=== PATIENT | male | born 1995 | race African-American/Black ===

== ENCOUNTER 2024-03-16 20:47 | Emergency (ER) | payer OTHER, SELFPAY ==
[2024-03-16 20:49] VITALS: BP 171/104
--- NOTE | 2024-03-16 21:17 | ED.GENMED ---
History of Present Illness
General
Chief Complaint: Skin Problem
Source: patient
Exam Limitations: none
Time Seen by Provider: 03/16/24 21:12
History of Present Illness
History of Present Illness:
Patient has had about 10 days of left facial swelling. Known caries and known fractured teeth upper and lower. Has not seen a dentist or tried to see a dentist. No fever. No trouble swallowing or breathing. No neck swelling or neck pain. Had
some foul-smelling drainage from his nose. This was the final straw
Past History
Past History
ED Past Medical History: Asthma and Other (Opioid use disorder)
ED Past Surgical History: Tonsilectomy
Social History
Tobacco: Vaping ( Tobacco)
Alcohol: None
Drug: Narcotics
Personal: Single
Living: homeless (Had been residing with the mother of his children, prior to that sober living house.)
Employment: Employed
Family History
Family History: Other (Noncontributory)
Review of Systems
Review of Systems
All Other Systems: Not applicable
Constitutional: Denies fever or chills
Respiratory: Reports no symptoms
Cardiac: Reports no symptoms
Phy Exam
Physical Exam
Physical Exam:
GENERAL: Alert and oriented in no apparent distress
EYE: Orbits normal.
NECK: Supple, no swelling.
ENT: Pharynx without erythema. Multiple fractured teeth and remaining teeth at the gumline. No obvious large intraoral abscess. No drooling or stridor. Speech normal. Nothing obvious intranasally.
CARDIAC: Regular rate and rhythm
LUNGS: No respiratory distress
NEUROLOGICAL: Alert and oriented , grossly non-focal
SKIN: Warm and dry
PSYCH: Normal and appropriate interaction.
Course
Orders/Labs/Results
Orders:
Orders
03/16/24 21:16
CT Facial Bones W/ Iv Contrast Urgent
Comment:
Reason For Exam: Left facial swelling.
IV Insert/Care/Rem.- Treatment PRN
03/16/24 21:25
Basic Metabolic Panel Urgent
Complete Blood Count/With Diff Urgent
03/16/24 22:58
CefTRIAXone [Rocephin] 1,000 mg IV NOW STA
Abnormal Lab Results
03/16/24
21:25
WBC 12.7 H 10^3/uL
(4.8-10.8)
RBC 4.31 L 10^6/uL
(4.70-6.10)
Hgb 12.0 L g/dL
(13.0-18.0)
Hct 35.3 L %
(39.0-52.0)
MPV 10.6 H fL
(7.4-10.4)
Abs Immat Gran (auto) 0.1 H 10^3/uL
(0-0.05)
Absolute Neuts (auto) 8.1 H 10^3/uL
(1.4-6.5)
Absolute Lymphs (auto) 3.9 H 10^3/uL
(1.2-3.4)
Chloride 108 H mmol/L
(98-107)
Glucose 132 H mg/dl
(70-99)
03/16/24 21:25
03/16/24 21:25
Vital Signs
Initial and Last Documented VS:
Initial Vital Signs
Temp Pulse Resp BP Pulse Ox
98.6 F 104 20 171/104 99
03/16/24 20:49 03/16/24 20:49 03/16/24 20:49 03/16/24 20:49 03/16/24 20:49
Last Documented Vital Signs
Temp Pulse Resp BP Pulse Ox
98.6 F 87 18 154/88 97
03/16/24 20:49 03/16/24 23:28 03/16/24 23:28 03/16/24 23:28 03/16/24 23:28
MDM/Problems Addressed
Differential Diagnosis Includes:
Patient with a likely periodontal abscess. No airway issues. No trismus no drooling no stridor. However with foul-smelling drainage intranasally we will get a CAT scan to evaluate for any further extension
*Radiology
Radiology exam reviewed: radiology read reviewed (CAT scan shows severe dental disease. Expansile left maxillary cyst and not sinusitis.)
*Pulse Oximetry
Patient hypoxic: no
*Critical Care Note
Total Time (30-74mins, 75-104mins- exclusive of procedures): Not Applicable
Data Reviewed
Review of Other/Old Records Reveals: Records
Update Note
Update Note:
Patient is remained stable and nontoxic. No airway issues. No severe swelling. I am comfortable with outpatient management with antibiotics but clearly needs follow-up with ENT, oral surgery and dental. This was all discussed with the patient.
Copy of CT report given to the patient
ED Attending Note
-
Portions of this chart may have been created with voice recognition software.� Occasional wrong word or��sound alike� substitutions may have occurred due to the inherent limitations of voice recognition software.
Discharge Plan
Departure
Patient Disposition: Home (Routine Discharge)
Date of Disposition: 03/16/24
Time of Disposition: 22:59
Patient with high blood pressure during this ER visit?: Yes
Discharge Problem:
Periodontal abscess, Severe dental caries, Maxillary cyst/sinusitis
Instructions: Sinusitis, Adult ED, Tooth Abscess ED, Tooth Decay ED, BLOOD PRESSURE
Prescriptions:
New
amoxicillin-pot clavulanate 875-125 mg tablet
1 tab PO BID Qty: 20 0RF
Referrals:
NONE,* [Family Provider] -
Davida Maria DMD [Active] - Next open appointment
Ray Fernandez MD [Active] - Next open appointment
Activity Restrictions/Additional Instructions:
You need follow-up with ENT, oral surgery and dental as we discussed. I would recommend trying the dental clinic at [place].
If symptoms are progressing before you get into any of the specialists, return immediately to the ER for reevaluation. This would include increased swelling increased pain fever any shortness of breath trouble breathing or swallowing. Any neck
swelling.
Interventions
Interventions:
*Risk Screen - Suicide Last Done: 03/16/24 20:49
*General Assessment Last Done: 03/16/24 20:49
*Neglect/Abuse Screening Last Done: 03/16/24 20:49
ED- Fall Risk Assessment Last Done: 03/16/24 23:30
*ED COVID-19 Vaccine History Last Done: 03/16/24 23:30
*Nursing Disposition Last Done: 03/16/24 23:30
ED-Skin Assessment Last Done: 03/16/24 21:53
Discharge Date and Time
Discharge Date/Time: 03/16/24 23:31
Print Language: DIVEHI
[2024-03-16 21:43] LABS: % Basophils 0.5 % (0-2); % Eosinophils 0.2 % (0-6); % Immature Granulocytes 0.4 % (0-0.5); % Lymphocytes 30.4 % (20.5-51.1); % Monocytes 4.3 % (1.7-9.3); % Neutrophils 64.2 % (42.2-75.2); Absolute Basophils 0.1 10^3/uL (0-0.2); Absolute Immature Granulocytes 0.1 10^3/uL (0-0.05); Absolute Lymphocytes 3.9 10^3/uL (1.2-3.4); Absolute Monocytes 0.5 10^3/uL (0.1-0.6); Absolute Neutrophils 8.1 10^3/uL (1.4-6.5); Hematocrit 35.3 % (39.0-52.0); Mean Corpuscular Hgb 27.8 pg (27.0-31.0); Mean Corpuscular Volume 81.9 fL (80.0-94.0); Mean Platelet Volume 10.6 fL (7.4-10.4); Nucleated Red Blood Cells % 0 % (-); Platelet Count 301 10^3/uL (130-400); Red Blood Cell Count 4.31 10^6/uL (4.70-6.10); Red Cell Dist. Width 13.2 % (11.5-14.5); White Blood Cell Count 12.7 10^3/uL (4.8-10.8)
[2024-03-16 22:00] LABS: Blood Urea Nitrogen 20 mg/dl (9-20); Calcium 9.6 mg/dl (8.4-10.2); Carbon Dioxide 27 mmol/L (22-30); Chloride 108 mmol/L (98-107); Glucose 132 mg/dl (70-99); Potassium 3.5 mmol/L (3.5-5.1); Sodium 142 mmol/L (135-145); eGFR > 60.00
[2024-03-16] MEDS: ROCEPHIN 1000 MG IV (23:04)
[2024-03-16 23:28] VITALS: BP 154/88
== END 2024-03-16 23:31 | disposition home or self-care (01) ==
LOC: EMR 20:47
PROVIDERS: EMERGENCY PHYSICIAN Emergency Medicine
DX: K05.219 Aggressive periodontitis, localized, unspecified severity (principal); K02.9 Dental caries, unspecified; J32.9 Chronic sinusitis, unspecified; J45.909 Unspecified asthma, uncomplicated; F17.290 Nicotine dependence, other tobacco product, uncomplicated
CPT/HCPCS: 99284; 70487; 80048; 85025; Q9967

== ENCOUNTER 2024-03-29 18:57 | Emergency (ER) | payer OTHER, SELFPAY ==
[2024-03-29 19:02] VITALS: BP 137/85
[2024-03-29 19:07] VITALS: BMI 30.1
--- NOTE | 2024-03-29 19:32 | ED.GENMED ---
History of Present Illness
General
Chief Complaint: Facial Problem
Time Seen by Provider: 03/29/24 19:32
History of Present Illness
History of Present Illness:
HPI: The patient presents with worsening left-sided facial swelling. He states he was here approximately 2 weeks ago and placed on Augmentin. He did not follow-up with a dentist as he was told to see someone after the completion of his course of
antibiotics. He was also told to return here if worse. He feels the symptoms are worsening. He describes them as 'way worse'.
EXAM:
GENERAL: Well appearing in no distress
HEENT: There is left-sided periorbital edema, there is sided facial edema over the zygomatic arch with some faint erythema
CARDIOVASCULAR: No murmurs, normal heart rate, regular rhythm, No chest wall tenderness
PULMONARY: No respiratory distress, breath sounds are clear and equal
ABDOMEN: Soft with no peritoneal signs, no tenderness
NEUROLOGIC: Excellent strength all extremities, no coordination deficits
PSYCHIATRIC: Appropriate mental status, normal insight and judgement
EXTREMITIES: Nontender, no edema, moves all extremities equally
SKIN: As above
TIME OF INITIAL ENCOUNTER: 8 PM
NUMBER AND COMPLEXITY OF PROBLEMS ADDRESSED AT THE ENCOUNTER
� Chronic conditions affecting care: Smoker, asthma, history of substance abuse
� Acute Exacerbation and/or Progression of Chronic Illness: This is a subacute problem
� Differential Diagnosis includes: Facial abscess, dental abscess, cellulitis
AMOUNT AND/OR COMPLEXITY OF DATA TO BE REVIEWED AND ANALYZED
� I performed an independent evaluation of and my interpretation is:
EKG:
CT: I personally viewed CT imaging and agree with radiologist interpretation including the opacification of the left maxilla along with significant dental disease
X-rays:
Laboratory Studies: White count is Normal at 10.5, chemistries are normal
Other:
� Review of other/old records: I reviewed records. The patient had a CT of the face 2 weeks ago that showed multiple caries and severe dental disease. At that time his white count was 12.7
� Clinical information was obtained by an independent historian: I spoke to his partner at bedside
� Prescriptions/Medications Considered but not given:
� Further testing considered but not performed:
RISK OF COMPLICATIONS AND/OR MORBIDITY OR MORTALITY OF PATIENT MANAGEMENT
� Social determinants of health affecting care: Lives at home
� Discussion with other providers:
� Escalation of care including admission/observation vs risk of discharge considered: The patient is not improving/worsening despite oral antibiotics. Will repeat imaging and give IV antibiotics. On reassessment at 10:50 PM, I
offered and amended keeping the patient to the hospital for further management including IV antibiotics. The patient states he has other obligations and cannot stay in the hospital. I emphasized the absolute need to follow-up with a dentist as I
suspect the etiology of his infection is dental in nature. Will switch to clindamycin.
Past History
Past History
ED Past Medical History: Asthma and Other (Opioid use disorder)
ED Past Surgical History: Tonsilectomy
Social History
Tobacco: Vaping ( Tobacco)
Alcohol: None
Drug: Narcotics
Personal: Single
Living: homeless (Had been residing with the mother of his children, prior to that sober living house.)
Employment: Employed
Family History
Family History: Other (Noncontributory)
Phy Exam
Physical Exam
Physical Exam:
See HPI
Course
Orders/Labs/Results
Orders:
Orders
03/29/24 20:13
CT Facial Bones W/ Iv Contrast Urgent
Comment:
Reason For Exam: worsening L facial infx despite abx
Dexamethasone Sod Phosphate [Decadron] 10 mg IV NOW STA
03/29/24 20:36
Basic Metabolic Panel Urgent
Complete Blood Count/With Diff Urgent
03/29/24 20:46
Clindamycin 600 mg/50 ml [Cleocin] 600 mg in 50 ml IV NOW
03/29/24 22:50
Ketorolac [Toradol] 15 mg IV NOW STA
Abnormal Lab Results
03/29/24
20:36
RBC 3.91 L 10^6/uL
(4.70-6.10)
Hgb 11.1 L g/dL
(13.0-18.0)
Hct 32.9 L %
(39.0-52.0)
MPV 11.8 H fL
(7.4-10.4)
Absolute Neuts (auto) 8.1 H 10^3/uL
(1.4-6.5)
Neutrophils % 77.7 H %
(42.2-75.2)
Lymphocytes % 17.1 L %
(20.5-51.1)
Glucose 105 H mg/dl
(70-99)
03/29/24 20:36
03/29/24 20:36
Vital Signs
Initial and Last Documented VS:
Initial Vital Signs
Temp Pulse Resp BP Pulse Ox
97.3 F 96 18 137/85 96
03/29/24 19:02 03/29/24 19:02 03/29/24 19:02 03/29/24 19:02 03/29/24 19:02
Last Documented Vital Signs
Temp Pulse Resp BP Pulse Ox
97.3 F 63 19 137/90 100
03/29/24 19:02 03/29/24 22:49 03/29/24 22:49 03/29/24 22:49 03/29/24 22:49
*Critical Care Note
Total Time (30-74mins, 75-104mins- exclusive of procedures): Not Applicable
ED Attending Note
-
Portions of this chart may have been created with voice recognition software.� Occasional wrong word or��sound alike� substitutions may have occurred due to the inherent limitations of voice recognition software.
Discharge Plan
Departure
Patient Disposition: Home (Routine Discharge)
Date of Disposition: 03/29/24
Time of Disposition: 22:48
Patient with high blood pressure during this ER visit?: Yes
Discharge Problem:
Dental infection
Instructions: Tooth Abscess (DC), Cellulitis (Skin Infection), Adult (DC)
Prescriptions:
New
clindamycin HCl 300 mg capsule
300 mg PO TID Qty: 21 0RF
No Action
tetrahydrozoline [Visine] 0.05 % Drops
1 drp BOTH EYES QIDPRN PRN (Reason: dry eye)
acetaminophen [Tylenol Extra Strength] 500 mg Tablet
1,000 mg PO Q6HPRN PRN (Reason: mild pain)
ibuprofen 200 mg Tablet
800 mg PO [id number] PRN (Reason: mild pain)
buprenorphine-naloxone 8-2 mg Tablet, Sublingual
1 tab SUBLINGUAL BID
Referrals:
UNKNOWN - PT DOES,NOT KNOW [Family Provider] -
Stand Alone Forms: Return to Work
Activity Restrictions/Additional Instructions:
You absolutely must make an appointment to see a dentist. CAT scan shows:
There is prominent beam hardening artifact from dental metal hardware/amalgam and multiple dental caries. Large periapical lucency in the left mandible is again seen measuring approximately 2.2 x 1.9 cm without significant change in comparison to
prior study. Periapical lucency in the right maxilla again measures approximately 1.2 x 1.2 cm disrupting the buccal cortex of the left maxilla. Large periapical lucency in the left maxilla with expansile cyst that protrudes into the adjacent
premaxillary soft tissues and left maxillary sinus antrum is again seen measuring approximately 3 cm in greatest dimension. Total opacification, heterogeneous of the left maxillary sinus is again seen. Minor right maxillary sinus mucosal thickening
is again seen. Left ethmoid sinus and left frontal sinus mucosal thickening has minimally improved.
I am sending a prescription for clindamycin to your pharmacy. Please follow-up with a dentist. I recommend 3-4 [id number] ibuprofen (Motrin) every 8 hours with food for a few days. Return here if worse.
Interventions
Interventions:
*Risk Screen - Suicide Last Done: 03/29/24 19:02
*General Assessment Last Done: 03/29/24 19:02
*Neglect/Abuse Screening Last Done: 03/29/24 19:02
ED- Fall Risk Assessment Last Done: 03/29/24 21:13
ED- Neurological Assessment Last Done: 03/29/24 21:13
ED-Skin Assessment Last Done: 03/29/24 20:46
Discharge Date and Time
Print Language: ITALIAN
[2024-03-29] MEDS: DECADRON 10 MG IV (20:42)
[2024-03-29] MEDS: CLEOCIN 50 IV (21:00)
[2024-03-29 21:05] LABS: % Basophils 0.1 % (0-2); % Immature Granulocytes 0.2 % (0-0.5); % Lymphocytes 17.1 % (20.5-51.1); % Monocytes 4.9 % (1.7-9.3); % Neutrophils 77.7 % (42.2-75.2); Absolute Lymphocytes 1.8 10^3/uL (1.2-3.4); Absolute Monocytes 0.5 10^3/uL (0.1-0.6); Absolute Neutrophils 8.1 10^3/uL (1.4-6.5); Hematocrit 32.9 % (39.0-52.0); Hemoglobin 11.1 g/dL (13.0-18.0); Mean Corp Hgb Conc. 33.7 g/dL (33.0-37.0); Mean Corpuscular Hgb 28.4 pg (27.0-31.0); Mean Corpuscular Volume 84.1 fL (80.0-94.0); Mean Platelet Volume 11.8 fL (7.4-10.4); Nucleated Red Blood Cells % 0 % (-); Platelet Count 286 10^3/uL (130-400); Red Blood Cell Count 3.91 10^6/uL (4.70-6.10); Red Cell Dist. Width 13.2 % (11.5-14.5); White Blood Cell Count 10.5 10^3/uL (4.8-10.8)
[2024-03-29 21:42] LABS: Blood Urea Nitrogen 16 mg/dl (9-20); Calcium 9.2 mg/dl (8.4-10.2); Carbon Dioxide 26 mmol/L (22-30); Chloride 105 mmol/L (98-107); Estimated Creatinine Clearance > 125 ml/min; Glucose 105 mg/dl (70-99); Potassium 4.4 mmol/L (3.5-5.1); Sodium 137 mmol/L (135-145); eGFR > 60.00
[2024-03-29 22:49] VITALS: BP 137/90
[2024-03-29] MEDS: TORADOL 15 MG IV (23:02)
== END 2024-03-29 23:07 | disposition home or self-care (01) ==
LOC: EMR 18:57
PROVIDERS: EMERGENCY PHYSICIAN Emergency Medicine
DX: K04.7 Periapical abscess without sinus (principal); J45.909 Unspecified asthma, uncomplicated; F17.290 Nicotine dependence, other tobacco product, uncomplicated
CPT/HCPCS: 99284; 96365; 96375; 70487; 80048; 85025; Q9967

== ENCOUNTER 2024-04-06 21:21 | Emergency (ER) | payer OTHER, SELFPAY ==
[2024-04-06 21:24] VITALS: BP 143/100
[2024-04-06 21:44] VITALS: BMI 29.9
[2024-04-06] MEDS: TYLENOL 1000 MG PO (22:49)
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
[2024-04-07 00:41] VITALS: BP 140/101
== END 2024-04-07 00:43 | disposition home or self-care (01) ==
LOC: EMR 21:21
PROVIDERS: EMERGENCY PHYSICIAN Student in an Organized Health Care Education/Training Program
DX: R68.84 Jaw pain (principal); S01.511A Laceration without foreign body of lip, initial encounter; Y04.2XXA Assault by strike against or bumped into by another person, initial encounter; Y93.89 Activity, other specified; Y92.89 Other specified places as the place of occurrence of the external cause; Y99.0 Civilian activity done for income or pay; K04.8 Radicular cyst; J45.909 Unspecified asthma, uncomplicated; F17.290 Nicotine dependence, other tobacco product, uncomplicated; Z91.048 Other nonmedicinal substance allergy status
CPT/HCPCS: 99284; 70450; 70486

== ENCOUNTER 2024-04-19 23:22 | Emergency (ER) | payer OTHER, SELFPAY ==
[2024-04-19 23:28] VITALS: BP 130/84
[2024-04-20 01:29] VITALS: BMI 31.8
[2024-04-20 01:30] VITALS: BP 117/80
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
[2024-04-20] MEDS: AUGMENTIN 875 MG/125 MG 1 TABLET PO (02:45)
[2024-04-20] MEDS: MOTRIN 600 MG PO (02:54)
[2024-04-20 03:00] VITALS: BP 129/79
== END 2024-04-20 03:00 | disposition home or self-care (01) ==
LOC: EMR 23:22
PROVIDERS: EMERGENCY PHYSICIAN Emergency Medicine
DX: L02.01 Cutaneous abscess of face (principal); K04.7 Periapical abscess without sinus; K04.8 Radicular cyst; R51.9 Headache, unspecified; Y04.0XXA Assault by unarmed brawl or fight, initial encounter; J45.909 Unspecified asthma, uncomplicated; F17.290 Nicotine dependence, other tobacco product, uncomplicated; Z91.048 Other nonmedicinal substance allergy status
CPT/HCPCS: 99284; 64400

== ENCOUNTER 2024-06-17 19:40 | Emergency (ER) | payer OTHER, SELFPAY ==
[2024-06-17 19:52] VITALS: BP 133/80
--- NOTE | 2024-06-17 21:39 | ED.GENMED ---
History of Present Illness
General
Chief Complaint: Dental Problem
Time Seen by Provider: 06/17/24 20:43
History of Present Illness
History of Present Illness:
28-year-old male presenting for concern of left facial dental abscess. Patient reports in the past 4 days has had some left-sided facial swelling and pain. Notes that he has had this before, requiring drainage, most recently in April. Denies
fever. He has not seen a dentist in over a year. He reports that the area of issue is left upper. Denies additional acute medical complaints or issues.
Past History
Past History
ED Past Medical History: Asthma and Other (Opioid use disorder)
ED Past Surgical History: Tonsilectomy
Social History
Tobacco: Vaping ( Tobacco)
Alcohol: None
Drug: Narcotics
Personal: Single
Living: homeless (Had been residing with the mother of his children, prior to that sober living house.)
Employment: Employed
Family History
Family History: Other (Noncontributory)
Phy Exam
Physical Exam
Physical Exam:
General: Well-appearing, no clinical signs of dehydration, nontoxic and in no acute distress
HEENT: protecting airway, mild left facial swelling. No oropharyngeal swelling. No trismus. On palpation of the gumline, no palpable fluctuance. Absent tooth at molar, #15 with some residual necrosis.
Neck: appears supple
CV: Normal heart rate
Resp: No accessory muscle use, no increased work of breathing
Abd: No distention
Extremities: No deformities, no swelling
Neuro: alert, no focal neurologic deficit
: deferred
Rectal: deferred
Psych: Normal affect
Skin: Intact
Course
Orders/Labs/Results
Orders:
Orders
06/17/24 21:35
Clindamycin HCl [Cleocin] 600 mg PO NOW STA
Ketorolac [Toradol] 30 mg IM NOW STA
Vital Signs
Initial and Last Documented VS:
Initial Vital Signs
Temp Pulse BP Pulse Ox
99.6 F 79 133/80 100
06/17/24 19:52 06/17/24 19:52 06/17/24 19:52 06/17/24 19:52
Last Documented Vital Signs
Temp Pulse BP Pulse Ox
99.6 F 79 133/80 100
06/17/24 19:52 06/17/24 19:52 06/17/24 19:52 06/17/24 19:52
MDM/Problems Addressed
MDM/Problems Addressed:
28-year-old male presenting for concern of recurrent dental abscess. Vital signs and arrival are normal.
On exam patient is well-appearing, no acute distress or discomfort, nontoxic. No oropharyngeal edema or erythema. No airway compromise. No trismus. Patient does have some mild left-sided facial swelling. No palpable fluctuance on exam. Suspect
apical abscess, however does not appear to be drainable at this time. Will start patient on antibiotics. He is otherwise nontoxic, feel stable for outpatient dental follow-up. Advised seeing a dentist for [facility] imaging. Return precautions
discussed patient verbalized understanding
*Critical Care Note
Total Time (30-74mins, 75-104mins- exclusive of procedures): Not Applicable
ED Attending Note
-
Portions of this chart may have been created with voice recognition software.� Occasional wrong word or��sound alike� substitutions may have occurred due to the inherent limitations of voice recognition software.
Discharge Plan
Departure
Prescriptions:
No Action
tetrahydrozoline [Visine] 0.05 % Drops
1 drp BOTH EYES QIDPRN PRN (Reason: dry eye)
acetaminophen [Tylenol Extra Strength] 500 mg Tablet
1,000 mg PO Q6HPRN PRN (Reason: mild pain)
ibuprofen 200 mg Tablet
800 mg PO [id number] PRN (Reason: mild pain)
buprenorphine-naloxone 8-2 mg Tablet, Sublingual
1 tab SUBLINGUAL BID
clindamycin HCl 300 mg capsule
300 mg PO TID Qty: 21 0RF
amoxicillin-pot clavulanate 875-125 mg tablet
1 tab PO BID Qty: 14 0RF
prednisone 10 mg Tablet
See Rx Instructions .ROUTE .COMPLEX Qty: 30 0RF
Rx Instructions:
Take By Mouth:
40 mg daily x3 days, 30 mg daily x3 days,
20 mg daily x3 days, 10 mg daily x3 days.
Referrals:
NONE,* [Family Provider] -
Interventions
Interventions:
*Risk Screen - Suicide Last Done: 06/17/24 21:23
*General Assessment Last Done: 06/17/24 21:23
*Neglect/Abuse Screening Last Done: 06/17/24 21:23
*ED COVID-19 Vaccine History Last Done: 06/17/24 21:23
Discharge Date and Time
Print Language: CZECH
[2024-06-17] MEDS: CLEOCIN 600 MG PO (21:52)
[2024-06-17] MEDS: TORADOL 30 MG IM (21:54)
== END 2024-06-17 21:59 | disposition home or self-care (01) ==
LOC: EMR 19:40
PROVIDERS: EMERGENCY PHYSICIAN Student in an Organized Health Care Education/Training Program
DX: K08.89 Other specified disorders of teeth and supporting structures (principal); J45.909 Unspecified asthma, uncomplicated; F17.290 Nicotine dependence, other tobacco product, uncomplicated
CPT/HCPCS: 96372; 99284

== ENCOUNTER 2024-06-20 19:04 | Emergency (ER) | payer OTHER, SELFPAY ==
--- NOTE | 2024-06-20 19:21 | ED.GENMED ---
ED Provider Triage
<Marysol Jaramillo PHYSIOLOGIST - Last Filed: 06/20/24 19:23>
-
Patient seen by provider in Triage?: Seen in Triage
Attestation: A medical screening examination has been initiated by a qualified medical provider. Based on the assessment performed at this time, it has been determined that an emergent medical condition may exist and the patient has been informed
that further medical evaluation and possible additional diagnostic testing may be needed.
HPI: 28 yo male here for 'dental abscess left upper tooth' started 2 weeks ago, gradually worsening. Was here Sunday 06/17 and put on Clindamycin, has had 7 doses and area getting worse. Feels feverish did not take temp.
Denies n/v.
GENERAL: Alert , in no apparent distress
EYE: No visual abnormalities.
ENT: Notable moderate swelling left upper cheek.
LUNGS: No acute respiratory distress
NEUROLOGICAL: Alert and oriented
SKIN: Skin intact. No visible changes.
MUSCULOSKELETAL: Moving extremities normally
PSYCH: Normal and appropriate interaction.
This is a medical evaluation conducted in person to initiate diagnostic evaluation and provide initial therapeutics. Please see further documentation by the treating clinician.
History of Present Illness
<Marysol Jaramillo NP - Last Filed: 06/20/24 19:23>
General
Chief Complaint: Dental Problem
Time Seen by Provider: 06/20/24 22:48
<Erendira Burns PA-C - Last Filed: 06/21/24 00:55>
General
Source: patient and records
History of Present Illness
History of Present Illness:
28yoM with a history of asthma presenting for evaluation of a dental abscess. He reports 2 weeks of left upper dental pain. He was seen in the ED 3 days ago for a dental abscess and was started on clindamycin. There was no areas that were
amenable to drainage at that time. Patient reports worsening left maxillary facial swelling and pain today. He also reports chills but denies any known fevers. He is not eating or drinking much due to his pain. He has not followed up with a
dentist. Of note, patient was also seen in the ED March 2024 for a dental abscess.
Past History
<Marysol Jaramillo PHYSIOLOGIST - Last Filed: 06/20/24 19:23>
Past History
ED Past Medical History: Asthma and Other (Opioid use disorder)
ED Past Surgical History: Tonsilectomy
Social History
Tobacco: Vaping ( Tobacco)
Alcohol: None
Drug: Narcotics
Personal: Single
Living: homeless (Had been residing with the mother of his children, prior to that sober living house.)
Employment: Employed
Family History
Family History: Other (Noncontributory)
Phy Exam
<Erendira Burns PA-C - Last Filed: 06/21/24 00:55>
General Physical Exam
General Presentation: well appearing and no apparent distress
General Skin: warm and dry
General Habitus: normal
General Mental: alert
General Hydration: appears well hydrated
ENT Exam
ENT Exam: other (Large amount of facial swelling to L maxillary region. No facial cellulitis. There is palpable fluctuance lateral to the canine. No trismus. No elevation of floor of mouth. Normal phonation. Tolerating oral secretions without
difficulty. )
Pulmonary Exam
Pulmonary Exam: no respiratory distress
[place] Coma Scale
Eye Opening: Spontaneous
Verbal Response: Oriented
Motor Response: Obeys Commands
GCS Total Score: 15
Skin Exam
Skin Exam: normal color and warm/dry
Psychiatric Exam
Psychiatric Exam: normal mood/affect
Course
<Marysol Jaramillo PHYSIOLOGIST - Last Filed: 06/20/24 19:23>
Orders/Labs/Results
Orders:
Orders
06/20/24 23:40
Dexamethasone [Decadron] 10 mg PO NOW STA
06/20/24 23:52
Ketorolac [Toradol] 30 mg IM NOW STA
06/21/24 00:02
Acetaminophen [Tylenol] 1,000 mg PO NOW STA
Ibuprofen [Motrin] 600 mg PO NOW STA
06/20/24 22:16
06/20/24 22:16
Vital Signs
Initial and Last Documented VS:
Initial Vital Signs
Temp Pulse Resp BP Pulse Ox
99 F 88 20 148/84 98
06/20/24 19:11 06/20/24 19:11 06/20/24 19:11 06/20/24 19:11 06/20/24 19:11
Last Documented Vital Signs
Temp Pulse Resp BP Pulse Ox
99 F 72 18 140/90 99
06/20/24 19:11 06/21/24 00:14 06/21/24 00:14 06/21/24 00:14 06/20/24 21:28
<Dutch Parkinson, DO - Last Filed: 06/20/24 23:16>
Orders/Labs/Results
Orders:
Orders
06/20/24 23:40
Dexamethasone [Decadron] 10 mg PO NOW STA
06/20/24 23:52
Ketorolac [Toradol] 30 mg IM NOW STA
06/21/24 00:02
Acetaminophen [Tylenol] 1,000 mg PO NOW STA
Ibuprofen [Motrin] 600 mg PO NOW STA
06/20/24 22:16
06/20/24 22:16
Vital Signs
Initial and Last Documented VS:
Initial Vital Signs
Temp Pulse Resp BP Pulse Ox
99 F 88 20 148/84 98
06/20/24 19:11 06/20/24 19:11 06/20/24 19:11 06/20/24 19:11 06/20/24 19:11
Last Documented Vital Signs
Temp Pulse Resp BP Pulse Ox
99 F 72 18 140/90 99
06/20/24 19:11 06/21/24 00:14 06/21/24 00:14 06/21/24 00:14 06/20/24 21:28
<Erendira Burns PA-C - Last Filed: 06/21/24 00:55>
Orders/Labs/Results
Orders:
Orders
06/20/24 23:40
Dexamethasone [Decadron] 10 mg PO NOW STA
06/20/24 23:52
Ketorolac [Toradol] 30 mg IM NOW STA
06/21/24 00:02
Acetaminophen [Tylenol] 1,000 mg PO NOW STA
Ibuprofen [Motrin] 600 mg PO NOW STA
06/20/24 22:16
06/20/24 22:16
Vital Signs
Initial and Last Documented VS:
Initial Vital Signs
Temp Pulse Resp BP Pulse Ox
99 F 88 20 148/84 98
06/20/24 19:11 06/20/24 19:11 06/20/24 19:11 06/20/24 19:11 06/20/24 19:11
Last Documented Vital Signs
Temp Pulse Resp BP Pulse Ox
99 F 72 18 140/90 99
06/20/24 19:11 06/21/24 00:14 06/21/24 00:14 06/21/24 00:14 06/20/24 21:28
Procedures
<Erendira Burns PA-C - Last Filed: 06/21/24 00:55>
Incision/Drainage/Joint Aspiration
Left upper gumline:
Anethesia: 1% Lidocaine
Preparation: cleaned with Betadine
Type of procedure: incise and drain
Nature of site: abscess
Description of abscess: less than 3cm
How much fluid was obtained?: large amount
Fluid description: purulent and bloody
Treatment: left open for drainage
<Erendira Burns PA-C - Last Filed: 06/21/24 00:55>
MDM/Problems Addressed
Differential Diagnosis Includes:
28yoM here with a L upper dental abscess. Seen in the ED 3 days ago for the same and started on clindamycin. Here with worsening facial swelling noted. VSS. Large amount of L maxillary facial swelling on exam. There is also palpable fluctuance
lateral the canine. No clinical evidence of facial cellulitis or Jason's.
I&D performed with return of a moderate amount of purulence. Patient reports symptomatic improvement after drainage. He is stable for discharge. Dose of Decadron given. He was advised to continue clindamycin and call first thing tomorrow to schedule
a f/u with [facility]. Strict ED return precautions discussed. He expressed understanding and is agreeable to plan. He was discharged in stable condition.
<Erendira Burns PA-C - Last Filed: 06/21/24 00:55>
*Critical Care Note
Total Time (30-74mins, 75-104mins- exclusive of procedures): Not Applicable
ED Attending Note
<Maryosl Jaramillo NP - Last Filed: 06/20/24 19:23>
-
Portions of this chart may have been created with voice recognition software.� Occasional wrong word or��sound alike� substitutions may have occurred due to the inherent limitations of voice recognition software.
<Dtuch Parkinson DO - Last Filed: 06/20/24 23:16>
ED Attending Note
Patient seen and examined by attending physician: Yes
I performed the substantive portion of visit, reviewed & personally made and approve the management plan that is documented in note by myself or ISABELL.: Yes
ED Attending Note:
Seen with PHYSIOLOGIST PA agree with assessment and plan left facial abscess I am able to palpate an abscess lateral to the canine will try local I&D patient would benefit from a dentist or oral surgeon
Discharge Plan
Departure
Patient Disposition: Home (Routine Discharge)
Date of Disposition: 06/20/24
Time of Disposition: 23:43
Patient with high blood pressure during this ER visit?: No
Discharge Problem:
Dental abscess
Instructions: Tooth Abscess (DC)
Prescriptions:
No Action
tetrahydrozoline [Visine] 0.05 % Drops
1 drp BOTH EYES QIDPRN PRN (Reason: dry eye)
acetaminophen [Tylenol Extra Strength] 500 mg Tablet
1,000 mg PO Q6HPRN PRN (Reason: mild pain)
ibuprofen 200 mg Tablet
800 mg PO [id number] PRN (Reason: mild pain)
buprenorphine-naloxone 8-2 mg Tablet, Sublingual
1 tab SUBLINGUAL BID
clindamycin HCl 300 mg capsule
300 mg PO TID Qty: 21 0RF
amoxicillin-pot clavulanate 875-125 mg tablet
1 tab PO BID Qty: 14 0RF
prednisone 10 mg Tablet
See Rx Instructions .ROUTE .COMPLEX Qty: 30 0RF
Rx Instructions:
Take By Mouth:
40 mg daily x3 days, 30 mg daily x3 days,
20 mg daily x3 days, 10 mg daily x3 days.
clindamycin HCl 300 mg capsule
600 mg PO BID 7 Days Qty: 28 0RF
Referrals:
Loli Carter DDS [Active] -
NONE,* [Family Provider] -
Activity Restrictions/Additional Instructions:
Continue taking clindamycin. Take Tylenol and ibuprofen as needed for pain.
Please call tomorrow to schedule a follow-up with oral surgery. Return to the ER with any worsening symptoms or fevers.
Interventions
Interventions:
*Risk Screen - Suicide Last Done: 06/20/24 19:11
*General Assessment Last Done: 06/21/24 00:14
*Neglect/Abuse Screening Last Done: 06/20/24 19:11
*Nursing Disposition Last Done: 06/21/24 00:14
Discharge Date and Time
Discharge Date/Time: 06/21/24 00:15
Print Language: SLOVAK
[2024-06-20] MEDS: DECADRON 10 MG PO (23:59)
[2024-06-21] MEDS: MOTRIN 600 MG PO (00:10)
[2024-06-21] MEDS: TYLENOL 1000 MG PO (00:10)
== END 2024-06-21 00:15 | disposition home or self-care (01) ==
LOC: EMR 19:04
PROVIDERS: EMERGENCY PHYSICIAN Emergency Medicine
DX: K04.7 Periapical abscess without sinus (principal); K08.89 Other specified disorders of teeth and supporting structures; R68.83 Chills (without fever); Z59.00 Homelessness unspecified; J45.909 Unspecified asthma, uncomplicated; F17.290 Nicotine dependence, other tobacco product, uncomplicated; Z91.048 Other nonmedicinal substance allergy status
CPT/HCPCS: 99283; 41800

== ENCOUNTER 2024-12-14 21:47 | Emergency (ER) | payer OTHER, SELFPAY ==
[2024-12-14 22:05] VITALS: BP 144/96
[2024-12-14 23:38] VITALS: BMI 30.9
--- NOTE | 2024-12-15 01:09 | ED.GENMED ---
History of Present Illness
<DO Susannah Pastor Filed: 12/15/24 03:37>
General
Chief Complaint: Skin Problem
Source: patient
Time Seen by Provider: 12/15/24 00:16
History of Present Illness
History of Present Illness:
29-year-old male presents to the emergency room complaining of a area of pain and swelling near his anus on the right side. Pain began about 2 weeks ago and has been increasing in size and in intensity of pain. Over the past couple days has been
having night sweats and chills. He has not taken his temperature. He has pain when defecating. Patient is also been experiencing pain in his right very low abdomen/pelvis. That area is tender to palpation. Patient denies any previous infections
or abscesses in this area.
Past History
<DO Susannah Pastor Last Filed: 12/15/24 03:37>
Past History
ED Past Medical History: Asthma and Other (Opioid use disorder)
ED Past Surgical History: Tonsilectomy
Social History
Tobacco: Vaping ( Tobacco)
Alcohol: None
Drug: Narcotics
Personal: Single
Living: homeless (Had been residing with the mother of his children, prior to that sober living house.)
Employment: Employed
Family History
Family History: Other (Noncontributory)
Phy Exam
<Vlad Anne DO - Last Filed: 12/15/24 03:37>
Physical Exam
Physical Exam:
General: Awake, Alert, Oriented X3. No acute distress.
Vitals: unremarkable
Head: Atraumatic
Eyes: Pupils equal, EOMI
Throat: Airway intact, no exudates
Neck: Trachea midline
Lungs: Clear and equal b/l
Heart: Regular rate, no murmurs
Abd: Soft, Nontender, No pulsatile mass
Rectal: Fluctuance noted on the right lateral rectal wall
Neuro: Nonfocal
Skin: Fullness, tenderness and fluctuance noted on the right buttock close to the anal verge
Extremities: pulses equal b/l, no edema
Course
<Vlad H. Dayana, DO - Last Filed: 12/15/24 03:37>
Orders/Labs/Results
Orders:
Orders
12/15/24 01:07
0.9% Sodium Chloride 500 ml [Nss] 500 ml IV BOLUS
Ketorolac [Toradol] 15 mg IV NOW STA
12/15/24 01:08
CT Abd/Pel (IV only)-[facility] only Urgent
Comment:
Reason For Exam: rectal pain, right pelvic pain eval for abscess
12/15/24 01:27
Basic Metabolic Panel Urgent
Complete Blood Count/With Diff Urgent
12/15/24 01:43
Ibuprofen [Motrin] 600 mg .ROUTE .STK-MED ONE
12/15/24 01:44
Ibuprofen [Motrin] 600 mg PO NOW STA
12/15/24 03:33
Ampicillin/Sulbactam 3 G [Unasyn] 3 gm 0.9% Sodium Chloride 100 ml [Nss] 100 ml IV NOW
12/15/24 03:36
Piperacillin/Tazo 4.5 Gram [Zosyn] 4.5 gram in 100 ml IV NOW
Abnormal Lab Results
12/15/24
01:27
WBC 13.6 H 10^3/uL
(4.8-10.8)
RBC 4.51 L 10^6/uL
(4.70-6.10)
Hgb 12.7 L g/dL
(13.0-18.0)
Hct 37.7 L %
(39.0-52.0)
MPV 11.1 H fL
(7.4-10.4)
Absolute Neuts (auto) 9.2 H 10^3/uL
(1.4-6.5)
Absolute Lymphs (auto) 3.5 H 10^3/uL
(1.2-3.4)
Absolute Monos (auto) 0.7 H 10^3/uL
(0.1-0.6)
12/15/24 01:27
12/15/24 01:27
Vital Signs
Initial and Last Documented VS:
Initial Vital Signs
Pulse Resp BP Pulse Ox
127 18 144/96 98
12/14/24 22:05 12/14/24 22:05 12/14/24 22:05 12/14/24 22:05
Last Documented Vital Signs
Temp Pulse Resp BP Pulse Ox
98.7 F 90 18 135/70 99
12/15/24 04:00 12/15/24 04:00 12/15/24 04:00 12/15/24 04:00 12/15/24 04:00
<Mary Gross, DO - Last Filed: 12/15/24 07:08>
Orders/Labs/Results
Orders:
Orders
12/15/24 01:07
0.9% Sodium Chloride 500 ml [Nss] 500 ml IV BOLUS
Ketorolac [Toradol] 15 mg IV NOW STA
12/15/24 01:08
CT Abd/Pel (IV only)-[facility] only Urgent
Comment:
Reason For Exam: rectal pain, right pelvic pain eval for abscess
12/15/24 01:27
Basic Metabolic Panel Urgent
Complete Blood Count/With Diff Urgent
12/15/24 01:43
Ibuprofen [Motrin] 600 mg .ROUTE .STK-MED ONE
12/15/24 01:44
Ibuprofen [Motrin] 600 mg PO NOW STA
12/15/24 03:33
Ampicillin/Sulbactam 3 G [Unasyn] 3 gm 0.9% Sodium Chloride 100 ml [Nss] 100 ml IV NOW
12/15/24 03:36
Piperacillin/Tazo 4.5 Gram [Zosyn] 4.5 gram in 100 ml IV NOW
Abnormal Lab Results
12/15/24
01:27
WBC 13.6 H 10^3/uL
(4.8-10.8)
RBC 4.51 L 10^6/uL
(4.70-6.10)
Hgb 12.7 L g/dL
(13.0-18.0)
Hct 37.7 L %
(39.0-52.0)
MPV 11.1 H fL
(7.4-10.4)
Absolute Neuts (auto) 9.2 H 10^3/uL
(1.4-6.5)
Absolute Lymphs (auto) 3.5 H 10^3/uL
(1.2-3.4)
Absolute Monos (auto) 0.7 H 10^3/uL
(0.1-0.6)
12/15/24 01:27
12/15/24 01:27
Vital Signs
Initial and Last Documented VS:
Initial Vital Signs
Pulse Resp BP Pulse Ox
127 18 144/96 98
12/14/24 22:05 12/14/24 22:05 12/14/24 22:05 12/14/24 22:05
Last Documented Vital Signs
Temp Pulse Resp BP Pulse Ox
98.7 F 90 18 135/70 99
12/15/24 04:00 12/15/24 04:00 12/15/24 04:00 12/15/24 04:00 12/15/24 04:00
<Mary Gross DO - Last Filed: 12/15/24 07:08>
*Critical Care Note
Total Time (30-74mins, 75-104mins- exclusive of procedures): Not Applicable
<Mary Gross DO - Last Filed: 12/15/24 07:08>
Update Note
Update Note:
04:20
Patient receiving IV antibiotics.
He now informs us that he is unable to stay in the hospital at least this morning, he has to get home to drop the car off to his . They share a car.
He plans to have his drop him back off at the hospital later this morning.
Lengthy discussion with patient regarding risk of not returning to the hospital which he understands.
Also recommend he avoid eating, limit his diet to clear liquids only this morning.
Will sign out AMA after IV Zosyn completed.
Colorectal surgery updated on patient's status.
ED Attending Note
<Vlad Anne, DO - Last Filed: 12/15/24 03:37>
-
Portions of this chart may have been created with voice recognition software.� Occasional wrong word or��sound alike� substitutions may have occurred due to the inherent limitations of voice recognition software.
Discharge Plan
Departure
Patient Disposition: Against Medical Advice
Date of Disposition: 12/15/24
Time of Disposition: 03:37
Condition: Fair
Discharge Problem:
Abscess, perianal
Prescriptions:
No Action
buprenorphine-naloxone [Suboxone] 8-2 mg Film
2 film BUCCAL DAILY
Referrals:
NONE,* [Family Provider] -
Stand Alone Forms: Return to Work
Activity Restrictions/Additional Instructions:
Must return to the Emergency Department this morning 12/15/24 to be admitted and evaluated by a surgeon.
Interventions
Interventions:
*Risk Screen - Suicide Last Done: 12/14/24 21:48
*General Assessment Last Done: 12/14/24 23:38
*Neglect/Abuse Screening Last Done: 12/14/24 21:48
*ED- Fall Risk Assessment Last Done: 12/14/24 23:38
*ED COVID-19 Vaccine History Last Done: 12/14/24 23:38
*Nursing Disposition Last Done: 12/15/24 04:30
ED-Skin Assessment Last Done: 12/15/24 01:51
Discharge Date and Time
Discharge Date/Time: 12/15/24 04:30
Print Language: CHINESE
[2024-12-15 01:26] VITALS: BP 130/84
[2024-12-15 01:34] LABS: % Basophils 0.3 % (0-2); % Immature Granulocytes 0.2 % (0-0.5); % Lymphocytes 25.5 % (20.5-51.1); % Monocytes 5.2 % (1.7-9.3); % Neutrophils 67.8 % (42.2-75.2); Absolute Eosinophils 0.1 10^3/uL (0-0.7); Absolute Lymphocytes 3.5 10^3/uL (1.2-3.4); Absolute Monocytes 0.7 10^3/uL (0.1-0.6); Absolute Neutrophils 9.2 10^3/uL (1.4-6.5); Hematocrit 37.7 % (39.0-52.0); Hemoglobin 12.7 g/dL (13.0-18.0); Mean Corp Hgb Conc. 33.7 g/dL (33.0-37.0); Mean Corpuscular Hgb 28.2 pg (27.0-31.0); Mean Corpuscular Volume 83.6 fL (80.0-94.0); Mean Platelet Volume 11.1 fL (7.4-10.4); Nucleated Red Blood Cells % 0 % (-); Platelet Count 208 10^3/uL (130-400); Red Blood Cell Count 4.51 10^6/uL (4.70-6.10); Red Cell Dist. Width 12.3 % (11.5-14.5); White Blood Cell Count 13.6 10^3/uL (4.8-10.8)
[2024-12-15] MEDS: MOTRIN 600 MG PO (01:45)
[2024-12-15 01:47] LABS: Blood Urea Nitrogen 19 mg/dl (9-20); Calcium 9.3 mg/dl (8.4-10.2); Carbon Dioxide 27 mmol/L (22-30); Chloride 103 mmol/L (98-107); Estimated Creatinine Clearance > 125 ml/min; Glucose 97 mg/dl (70-99); Potassium 4.2 mmol/L (3.5-5.1); Sodium 139 mmol/L (135-145); eGFR > 60.00
[2024-12-15] MEDS: NSS 500 IV (01:47)
--- NOTE | 2024-12-15 03:35 | DOWNTIME ---
There was a [employer] Client Finish Machine Tender Downtime on 12/15/2024 from 0200 to 12/16/2023 at 0318 . Downtime documentation of patient's care, including medication administrations, has been reconciled in the electronic record per guidelines. Refer to the
patient's paper chart under the miscellaneous tab to see printed paper medication records and downtime forms.
[2024-12-15 04:00] VITALS: BP 135/70
[2024-12-15] MEDS: ZOSYN 100 IV (04:08)
== END 2024-12-15 04:30 | disposition left against medical advice (07) ==
LOC: EMR 21:47
PROVIDERS: EMERGENCY PHYSICIAN Emergency Medicine
DX: K61.0 Anal abscess (principal); F17.290 Nicotine dependence, other tobacco product, uncomplicated; J45.909 Unspecified asthma, uncomplicated; Z53.29 Procedure and treatment not carried out because of patient's decision for other reasons
CPT/HCPCS: 96365; 96361; 99284; 74177; 80048; 85025; Q9967

== ENCOUNTER 2024-12-15 16:02 | Day surgery (SDC) | payer OTHER, SELFPAY ==
[2024-12-15] VITALS (10 sets, daily range): BP systolic 112–159; BP diastolic 62–101
--- NOTE | 2024-12-15 11:42 | ED.GENMED ---
History of Present Illness
General
Chief Complaint: Skin Problem
Source: patient
Exam Limitations: none
Time Seen by Provider: 12/15/24 11:22
Nursing documentation reviewed up to this point in time: agreed with
History of Present Illness
History of Present Illness:
PT IS A 29 Y/O M
with h/o IVDA
on suboxone and sober 3 years
presens to be admitted for perianal abscess
was here overnight and had ct scan showing abscess, was given iv zosyn and planned to admit to [facility] for I&D but pt had to leave AMA to bring his car to his
pt has had subjective chills yetserday but none since leaving this morning
he has had pain in his anal area for about 2 weeks, increase in size of the swelling and pain with defecatoin as well as RLQ pain
pt had leukocytosis as well
he has not eaten since last night
Past History
Past History
ED Past Medical History: Asthma and Other (Opioid use disorder)
ED Past Surgical History: Tonsilectomy
Social History
Tobacco: Vaping ( Tobacco)
Alcohol: None
Drug: Narcotics
Personal: Single
Living: homeless (Had been residing with the mother of his children, prior to that sober living house.)
Employment: Employed
Family History
Family History: Other (Noncontributory)
Review of Systems
Review of Systems
Allergies reviewed?: Yes
All Other Systems: Not applicable
Phy Exam
Physical Exam
Physical Exam:
GENERAL: Alert , in no apparent distress
EYE: pupils equal and reactive
NECK: Supple
ENT: o/p clr, mmm.
CARDIAC: Regular rate and rhythm .
LUNGS: Clear breath sounds bilaterally, no acute respiratory distress, no wheezes/rales/rhonchi
ABDOMEN: Soft, without focal tenderness, no r/g, no cvat, normal bowel sounds
RECTAL: tender fluctuant mass to perianal region 6 oclock extending into the anus slightly
no drainage
no surrounding erythema
NEUROLOGICAL: Alert and oriented, no focal neuro deficits
SKIN: Warm and dry, skin intact.
PSYCH: Normal and appropriate interaction.
Course
Orders/Labs/Results
Orders:
Orders
12/15/24 Breakfast
NPO
Allow oral meds: No
Allow clear liquids: No
12/15/24 11:52
Acetaminophen 1000MG/100Ml [Ofirmev] 1,000 mg in 100 ml IV ONCE
Acetaminophen IV Indication:: ED Narcotic History-ONCE
12/15/24 11:53
0.9% Sodium Chloride 1000 ml [Nss] 1,000 ml IV BOLUS
12/15/24 12:11
Complete Blood Count/With Diff Urgent
Comprehensive Metabolic Panel Urgent
12/15/24 14:32
Admit Patient As Directed
Co-Sign Provider:
Level of Care: Post Proc/Surg Recovery
Assign to:: Medical/Surgical
Physician / Group: Justin Guzmán
Diagnosis: perianal abscess
Reason for Overnight Stay: Standard of Care
Pneumatic Compression Sleeves As Directed
Type: Knee high
Teds [Anti-embolism (JESSICA) Hose] As Directed
Type: Knee high
PRN Pain Medication Management As Directed
May give lesser potent ordered pain med per pt: Yes
preference::
Protocol:: Medication orders for pain may be administered in a
manner that supports deferring to patient preference
when the pt is:
- Requesting an ordered lesser potent pain medication.
Least to most potent pain medications are defined
as: acetaminophen < NSAID < tramadol < opioids
(morphine, oxycodone, hydromorphone).
- Requesting a lesser dose of the same medication IF
ORDERED.
- Requesting a less intrusive route of administration
if both routes are prescribed by the provider (PO <
IV).
12/15/24 14:33
DX Deep Vein Thrombosis Video Routine
12/15/24 15:55
Nicotine [Nicoderm Transdermal] 7 mg TRANSDERM NOW STA
12/15/24 16:00
Piperacillin/Tazo 3.375 Gram [Zosyn] 3.375 gram in 50 ml IV Q6H
Abnormal Lab Results
12/15/24
12:11
WBC 14.3 H 10^3/uL
(4.8-10.8)
RBC 4.50 L 10^6/uL
(4.70-6.10)
Hgb 12.8 L g/dL
(13.0-18.0)
Hct 38.1 L %
(39.0-52.0)
MPV 11.5 H fL
(7.4-10.4)
Absolute Neuts (auto) 11.0 H 10^3/uL
(1.4-6.5)
Absolute Monos (auto) 0.7 H 10^3/uL
(0.1-0.6)
Neutrophils % 76.8 H %
(42.2-75.2)
Lymphocytes % 17.1 L %
(20.5-51.1)
Glucose 113 H mg/dl
(70-99)
12/15/24 12:11
12/15/24 12:11
Vital Signs
Initial and Last Documented VS:
Initial Vital Signs
Temp Pulse Resp BP Pulse Ox
36.9 C 142 18 159/101 100
12/15/24 09:58 12/15/24 09:58 12/15/24 09:58 12/15/24 09:58 12/15/24 09:58
Last Documented Vital Signs
Temp Pulse Resp BP Pulse Ox
36.9 C 92 11 159/101 100
12/15/24 09:58 12/15/24 11:45 12/15/24 11:45 12/15/24 09:58 12/15/24 09:58
MDM/Problems Addressed
Differential Diagnosis Includes:
perianal abscess
ED Attending Note
-
Portions of this chart may have been created with voice recognition software.� Occasional wrong word or��sound alike� substitutions may have occurred due to the inherent limitations of voice recognition software.
Discharge Plan
Departure
Patient Disposition: Admit
Date of Disposition: 12/15/24
Time of Disposition: 14:20
Admit to: OR
Presentation/result/management discussed w/ accepting MD/DO: evans
Condition: Fair
Covid-19: Not Applicable
Discharge Problem:
Abscess, perianal
Interventions
Interventions:
*Risk Screen - Suicide Last Done: 12/15/24 09:58
*General Assessment Last Done: 12/15/24 09:58
*Neglect/Abuse Screening Last Done: 12/15/24 09:58
[2024-12-15] MEDS: OFIRMEV 100 IV (12:10)
[2024-12-15] MEDS: NSS 1000 IV (12:10)
[2024-12-15 12:29] LABS: % Basophils 0.3 % (0-2); % Eosinophils 0.3 % (0-6); % Immature Granulocytes 0.3 % (0-0.5); % Lymphocytes 17.1 % (20.5-51.1); % Monocytes 5.2 % (1.7-9.3); % Neutrophils 76.8 % (42.2-75.2); Absolute Lymphocytes 2.5 10^3/uL (1.2-3.4); Absolute Monocytes 0.7 10^3/uL (0.1-0.6); Hematocrit 38.1 % (39.0-52.0); Hemoglobin 12.8 g/dL (13.0-18.0); Mean Corp Hgb Conc. 33.6 g/dL (33.0-37.0); Mean Corpuscular Hgb 28.4 pg (27.0-31.0); Mean Corpuscular Volume 84.7 fL (80.0-94.0); Mean Platelet Volume 11.5 fL (7.4-10.4); Nucleated Red Blood Cells % 0 % (-); Platelet Count 214 10^3/uL (130-400); Red Cell Dist. Width 12.3 % (11.5-14.5); White Blood Cell Count 14.3 10^3/uL (4.8-10.8)
[2024-12-15 12:34] LABS: ALT (SGPT) 13 U/L (0-50); AST (SGOT) 18 U/L (17-59); Albumin 4.8 g/dl (3.5-5.0); Alkaline Phosphatase 72 U/L (38-126); Blood Urea Nitrogen 13 mg/dl (9-20); Calcium 9.4 mg/dl (8.4-10.2); Carbon Dioxide 26 mmol/L (22-30); Chloride 103 mmol/L (98-107); Glucose 113 mg/dl (70-99); Potassium 3.9 mmol/L (3.5-5.1); Sodium 139 mmol/L (135-145); Total Bilirubin 0.7 mg/dl (0.2-1.3); Total Protein 7.8 g/dl (6.3-8.2); eGFR > 60.00
--- NOTE | 2024-12-15 13:43 | HPS.HSE ---
Family Physician
-
Family Physician: * NONE
Chief Complaint
-
perianal pain
History of Present Illness
29-year-old male presents to the emergency department earlier this morning complaining of perianal pain. He states began about 2 weeks ago and has been increasing in size. He noticed he is having night sweats as long as well as chills. CT of the
abdomen pelvis shows a perianal abscess in the medial right buttocks approximately 1 to 2 cm from the anus consistent with abscess formation. This measures approximately 2.1 x 1.1 cm. There is a similar finding on the left at the same level
measuring 1.4 x 0.7 cm. There is prominent right inguinal lymph node measuring 2.0 x 1.4 cm. The patient states he had an abscess before but it was not surgically drained and it had drained on his own. This was apparently several years ago. The
patient has a history of vaping, smoking, and is currently on Suboxone. He was started on IV antibiotics in the ER. His white count is 14.3. He remains afebrile. We will admit for incision and drainage of the perianal abscess.
Medical History
Past Medical History
Past Medical History: Reports Asthma
Additional Past Medical History:
opioid use disorder
Past Surgical History: Reports Tonsilectomy
Social History
Tobacco: Vaping
Drug: Former User
Employment: Employed
Family History
Family History: Not pertinent and Other (Denies family history of crohns or ulcerative colitis)
Allergies / Home Medications
Allergies reflects when Allergies were last updated in [facility].
Home Medications with original date entered in [facility]
Allergy/Medication List:
Allergies:
No known drug allergies
Medications:
Suboxone 2 films buccal daily
Review of Systems
-
A 12 point ROS was completed and negative except as noted: Yes
Constitutional: Reports Night Sweats and Chills
Abdomen/GI: Reports Other (perianal pain)
Physical Exam
Vital Signs
Vital Signs
Temp Pulse Resp BP Pulse Ox
98.5 F 92 11 159/101 100
12/15/24 09:58 12/15/24 11:45 12/15/24 11:45 12/15/24 09:58 12/15/24 09:58
Physical Exam
General: Well Developed, Well Nourished and No Apparent Distress
Rectal: Other (fluctuance and erythema noted on the anterior and right anterior portion of anus, pain on palpation)
Skin: Warm and Dry
Neuro: AO x 3
Laboratory Results
-
12/15/24 12:11
12/15/24 12:11
Laboratory Results
Total Bilirubin 0.7 mg/dl (0.2-1.3) 12/15/24 12:11
AST 18 U/L (17-59) 12/15/24 12:11
ALT 13 U/L (0-50) 12/15/24 12:11
Alkaline Phosphatase 72 U/L (38-126) 12/15/24 12:11
Data Reviewed
-
CT Scan: Image Personally Visualized and interpreted, Report Reviewed by me and Discussed with Patient
Lab Data: Labs Reviewed by me, Discussed with Physician and Discussed with Patient
Old Records: Reviewed
Impression/Plan
-
IMPRESSION: horseshoe perianal abscess
PLAN:
- Will undergo and incision and drainage today in the operating room
- Remain NPO
- Continue IV antibiotics
-Possible d/c later today vs overnight stay
-Discussed with patient who is in agreement
[2024-12-15] MEDS: ZOSYN 50 IV (16:00)
--- NOTE | 2024-12-15 19:10 | W.IMMPOSTOP ---
Surgical Immed Post Op Note
-
Primary Surgeon: Helen Guzmán MD
Assisting Surgeon: none
Pre-op Diagnosis: perianal abscess
Post-op Diagnosis: same
Procedure Performed: incision and drainage perianal abscess
Anesthesia Type: MAC plus local
Specimen / Cultures: abscess cultures
Estimated Blood Loss: 5 cc
Complications: no immediate
Operative Findings: R anterior perianal abscess
Packed with 1/4 inch iodoform and covered with 4 by 4s and tape.
Will discharge from [facility].
[2024-12-15] MEDS: DILAUDID 0.5 MG IV (19:30)
== END 2024-12-15 20:45 | disposition home or self-care (01) ==
LOC: SDS 16:02
PROVIDERS: Physician Assistant; ATTENDING PHYSICIAN Surgery; EMERGENCY PHYSICIAN Emergency Medicine
DX: K61.2 Anorectal abscess (principal)
CPT/HCPCS: 46050; 80053; 85025; 87070; 87075; 87205; 96361; 96374; 99285

== ENCOUNTER 2025-05-29 17:24 | Emergency (ER) | payer OTHER, SELFPAY ==
[2025-05-29 17:26] VITALS: BP 126/87
[2025-05-29 17:51] LABS: Hematocrit 37.5 % (39.0-52.0); Hemoglobin 12.4 g/dL (13.0-18.0); Mean Corp Hgb Conc. 33.1 g/dL (33.0-37.0); Mean Corpuscular Volume 85.4 fL (80.0-94.0); Nucleated Red Blood Cells % 0 % (-); Platelet Count 245 10^3/uL (130-400); Red Cell Dist. Width 12.6 % (11.5-14.5)
[2025-05-29 18:08] LABS: Blood Urea Nitrogen 14 mg/dl (9-20); Calcium 8.9 mg/dl (8.4-10.2); Carbon Dioxide 26 mmol/L (22-30); Chloride 108 mmol/L (98-107); Glucose 88 mg/dl (70-99); Sodium 138 mmol/L (135-145); eGFR > 60.00
[2025-05-29] MEDS: NORCO 5/325 2 TABLET PO (20:14)
[2025-05-29 20:18] VITALS: BP 128/89
[2025-05-29] MEDS: PEN VK 500 MG PO (20:18)
--- NOTE | 2025-05-29 20:37 | ED.GENMED ---
History of Present Illness
General
Chief Complaint: Eye Problems
Source: patient
Time Seen by Provider: 05/29/25 19:03
History of Present Illness
History of Present Illness:
Note:
CHIEF COMPLAINT(S)
Left facial swelling.
HISTORY OF PRESENT ILLNESS
The patient is a 29-year-old male who presented with swelling on the left side of his face, which began mildly the previous day. He reports that the swelling became significant by the following morning, extending to the point of affecting his
ability to open his eye. The patient denies any significant tooth pain or recent dental trauma. Upon examination, swelling was noted particularly in the infraorbital region overlying the left maxillary area. A palpable abscess was identified on the
left upper gingiva, overlying the left premolar. The patient has a history of dental caries in the left upper molars. He has not been on any antibiotics recently.
ADDITIONAL HISTORY OBTAINED FROM SOURCES OTHER THAN THE PATIENT
Not applicable.
PAST MEDICAL AND SURGICAL HISTORY
None
CHRONIC MEDICAL CONDITIONS SIGNIFICANTLY AFFECTING CARE
None
SOCIAL DETERMINANTS AFFECTING HEALTH
The patient smokes, which was noted to potentially impact his dental health.
ALLERGIES
The patient has no known drug allergies.
REVIEW OF SYSTEMS
- Head: Swelling of the left face, in the infraorbital region, with no difficulty opening his eye.
- Mouth: Presence of dental caries in left upper molars.
- General: No complaints of tooth pain or dental trauma.
PHYSICAL EXAM
General: Alert, no acute distress.
Skin: Warm, dry.
Head: Normocephalic, atraumatic.
Neck: Supple, trachea midline.
Eye Ears, Nose, Mouth and Throat: Swelling noted on the left side of the face, infraorbital region. Oral mucosa moist. Pinpoint tenderness with presence of a palpable abscess in the left upper gingiva over the premolar.
Cardiovascular: Normal peripheral perfusion, No edema.
Respiratory: Respirations are non-labored.
Gastrointestinal: Abdomen nondistended.
Back: Normal range of motion, Normal alignment.
Musculoskeletal: Normal range of motion, normal strength.
Neurological: Alert and oriented to person, place, time, and situation, No focal neurological deficit observed.
Psychiatric: Cooperative, appropriate mood & affect.
PLAN
- Drainage of the abscess to relieve the patients discomfort.
- Initiate antibiotic therapy post-procedure to address the underlying infection.
- Educate the patient on the benefits of smoking cessation, particularly concerning oral health.
DIFFERENTIAL DIAGNOSIS
The Differential Diagnosis includes, in no particular order and is not limited to:
1. Dental abscess
2. Cellulitis
3. Sinusitis
4. Osteomyelitis
5. Parotitis
6. Facial space infection
7. Periapical abscess
8. Dental cyst
9. Ludwigs angina
10. Carcinoma of the jaw
Disposition:
SUMMARY OF ENCOUNTER
The patient presented with significant left facial swelling due to an abscess in the left upper dentition. Upon examination, the abscess was identified and subsequently incised and drained, releasing a moderate amount of pus. Initiation of
antibiotic therapy was deemed necessary to address the underlying infection, hence, penicillin was prescribed. The patient was advised to follow up with oral surgery for further evaluation and management. Additionally, the patient was educated on
non-pharmacological measures including warm rinses and warm compresses, and smoking cessation was strongly recommended due to its impact on oral health.
PLAN
- Drainage of the abscess was successfully performed.
- Initiated antibiotic therapy with penicillin for infection management.
- Recommended follow-up with an oral surgeon for further evaluation and care.
- Advisement on warm rinses and compresses to aid in recovery.
- Strongly advised smoking cessation to improve overall oral health.
PATIENT EDUCATION AND COUNSELING
The patient was instructed on the use of warm rinses and compresses to aid recovery and strongly encouraged to cease smoking to improve their dental and overall health.
FOLLOW-UP INSTRUCTIONS
The patient was advised to arrange a follow-up appointment with an oral surgeon for further evaluation after initial emergency department management.
MEDICATION RECONCILIATION
Penicillin was prescribed for the treatment of the dental infection. The specific dosing instructions were provided to the patient at discharge.
MEDICAL DECISION MAKING
-Complexity of Data Reviewed: Chronic conditions affecting care include the patients history of dental caries. Differential diagnoses considered included dental abscess, cellulitis, sinusitis, osteomyelitis, parotitis, facial space infection,
periapical abscess, dental cyst, Ludwigs angina, and carcinoma of the jaw.
-Risk: Prescription medication was prescribed�penicillin�to treat the dental infection. The presence of a dental abscess, and the decision to drain it and initiate antibiotics, reflects a moderate risk of morbidity if not appropriately managed.
Social determinants affecting care included the patients smoking habit, which was addressed during the visit.
DIAGNOSIS
- Dental Abscess (ICD-10: K04.7)
Past History
Past History
ED Past Medical History: Asthma and Other (Opioid use disorder)
ED Past Surgical History: Tonsilectomy
Social History
Tobacco: Vaping ( Tobacco)
Alcohol: None
Drug: Narcotics
Personal: Single
Living: homeless (Had been residing with the mother of his children, prior to that sober living house.)
Employment: Employed
Family History
Family History: Other (Noncontributory)
Phy Exam
Physical Exam
Physical Exam:
.
Course
Orders/Labs/Results
Orders:
Orders
05/29/25 17:36
Basic Metabolic Panel Urgent
Complete Blood Count/With Diff Urgent
05/29/25 20:04
Hydrocodone 5/APAP 325 [[place] 5/325] 2 tablet PO NOW STA
05/29/25 20:10
Penicillin V Potassium [Pen Vk] 500 mg PO NOW STA
Abnormal Lab Results
05/29/25
17:36
WBC 14.4 H 10^3/uL
(4.8-10.8)
RBC 4.39 L 10^6/uL
(4.70-6.10)
Hgb 12.4 L g/dL
(13.0-18.0)
Hct 37.5 L %
(39.0-52.0)
MPV 11.1 H fL
(7.4-10.4)
Abs Immat Gran (auto) 0.1 H 10^3/uL
(0-0.05)
Absolute Neuts (auto) 9.6 H 10^3/uL
(1.4-6.5)
Absolute Monos (auto) 0.9 H 10^3/uL
(0.1-0.6)
Immature Gran % 0.6 H %
(0-0.5)
Chloride 108 H mmol/L
(98-107)
05/29/25 17:36
05/29/25 17:36
Vital Signs
Initial and Last Documented VS:
Initial Vital Signs
Temp Pulse Resp BP Pulse Ox
98.5 F 95 18 126/87 100
05/29/25 17:26 05/29/25 17:26 05/29/25 17:26 05/29/25 17:26 05/29/25 17:26
Last Documented Vital Signs
Temp Pulse Resp BP Pulse Ox
98.5 F 78 18 128/89 100
05/29/25 17:26 05/29/25 20:18 05/29/25 20:18 05/29/25 20:18 05/29/25 20:38
Procedures
Dentalgia
Dental Block: Infiltration
Bupivacaine 0.5%/Epi Dental cartridge administered?: Yes
Tooth Number: 15
Abcess drained?: Yes
Pt tolerated procedure well w/ no immediate adverse effects?: Yes
*Pulse Oximetry
SaO2: 100
Oxygen Mode of Delivery: Room air
Patient hypoxic: no
*Critical Care Note
Total Time (30-74mins, 75-104mins- exclusive of procedures): Not Applicable
ED Attending Note
-
Portions of this chart may have been created with voice recognition software.� Occasional wrong word or��sound alike� substitutions may have occurred due to the inherent limitations of voice recognition software.
Discharge Plan
Departure
Patient Disposition: Home (Routine Discharge)
Date of Disposition: 05/29/25
Time of Disposition: 20:37
Patient with high blood pressure during this ER visit?: No
Discharge Problem:
Abscess, dental
Instructions: Dental abscess - ED (DC)
Prescriptions:
New
penicillin V potassium 500 mg tablet
500 mg PO QID Qty: 28 0RF
No Action
buprenorphine-naloxone [Suboxone] 8-2 mg Film
2 film BUCCAL DAILY
Referrals:
Andrew Velasco MD, DDS [Active, Oral Surgery]
UNKNOWN - PT DOES,NOT KNOW [Family Provider]
Activity Restrictions/Additional Instructions:
Please see oral surgery or your dentist in the next 3 days for follow-up and reevaluation. Return for fevers, increased swelling, worsening symptoms or any other concerns. Please rinse your mouth with warm water every hour while awake for the next
4 days.
Interventions
Interventions:
*Risk Screen - Suicide Last Done: 05/29/25 17:26
*General Assessment Last Done: 05/29/25 17:26
*Neglect/Abuse Screening Last Done: 05/29/25 20:19
*ED- Fall Risk Assessment Last Done: 05/29/25 20:19
*ED COVID-19 Vaccine History Last Done: 05/29/25 20:19
*ED Influenza Vaccine History Last Done: 05/29/25 20:19
Discharge Date and Time
Print Language: ESTONIAN
== END 2025-05-29 21:06 | disposition home or self-care (01) ==
LOC: EMR 17:24
PROVIDERS: Emergency Medicine; EMERGENCY PHYSICIAN Emergency Medicine
DX: K04.7 Periapical abscess without sinus (principal); J45.909 Unspecified asthma, uncomplicated; F17.290 Nicotine dependence, other tobacco product, uncomplicated; Z59.01 Sheltered homelessness
CPT/HCPCS: 99283; 41800; 80048; 85025

== ENCOUNTER 2025-07-14 20:20 | Emergency (ER) | payer OTHER, SELFPAY ==
[2025-07-14 20:24] VITALS: BP 127/89; BMI 33.6
[2025-07-14 20:26] VITALS: BP 117/71
[2025-07-14 21:00] VITALS: BP 104/65
[2025-07-14 21:59] LABS: Glucose - Point of Care 81 mg/dl (70-99)
[2025-07-14 22:00] VITALS: BP 113/72
[2025-07-14 22:23] LABS: Hematocrit 33.3 % (39.0-52.0); Hemoglobin 11.0 g/dL (13.0-18.0); Mean Corp Hgb Conc. 33.0 g/dL (33.0-37.0); Mean Corpuscular Volume 84.3 fL (80.0-94.0); Nucleated Red Blood Cells % 0 % (-); Platelet Count 218 10^3/uL (130-400); Red Cell Dist. Width 13.2 % (11.5-14.5)
--- NOTE | 2025-07-14 22:34 | ED.GENMED ---
History of Present Illness
<Bj Gallego MD - Last Filed: 07/15/25 17:11>
General
Chief Complaint: Alcohol Problem
Time Seen by Provider: 07/14/25 21:15
History of Present Illness
History of Present Illness:
Patient is a 29-year-old man with history of substance use disorder presenting to the emergency department with concerns for intoxication. Per medics patient was in altercation with police and they here for further evaluation. Patient states that
he was drinking alcohol though cannot tell me additional details. Per nursing patient initially admitted to cocaine and opioids alcohol and benzos.
Past History
<Bj Gallego MD - Last Filed: 07/15/25 17:11>
Past History
ED Past Medical History: Asthma and Other (Opioid use disorder)
ED Past Surgical History: Tonsilectomy
Social History
Tobacco: Vaping ( Tobacco)
Alcohol: None
Drug: Narcotics
Personal: Single
Living: homeless (Had been residing with the mother of his children, prior to that sober living house.)
Employment: Employed
Family History
Family History: Other (Noncontributory)
Phy Exam
<Bj Gallego MD - Last Filed: 07/15/25 17:11>
Physical Exam
Physical Exam:
GENERAL: Appears intoxicated
HEENT: normocephalic, extraocular movements intact
NECK: normal inspection
RESPIRATORY: no respiratory distress, clear to auscultation bilaterally
CARDIOVASCULAR: regular rate and rhythm
ABDOMEN/: soft, non-distended, non-tender to palpation, no rebound or guarding
EXTREMITIES: non-tender, no edema/swelling
NEUROLOGIC: Sleepy but easily arousable moves all extremities
SKIN: warm
Scores
<Bj Gallego MD - Last Filed: 07/15/25 17:11>
Withdrawal Assessment of Alcohol
Withdrawal Assessment Completed?: No
Course
<Bj Gallego MD - Last Filed: 07/15/25 17:11>
Orders/Labs/Results
Orders:
Orders
07/14/25 22:06
CT Head W/o Iv Contrast Urgent
Reason For Exam: altered
07/14/25 22:16
Aspirin level [Salicylate] Urgent
Basic Metabolic Panel Urgent
Complete Blood Count/With Diff Urgent
Tylenol [Acetaminophen] Urgent
Abnormal Lab Results
07/14/25
22:16
RBC 3.95 L 10^6/uL
(4.70-6.10)
Hgb 11.0 L g/dL
(13.0-18.0)
Hct 33.3 L %
(39.0-52.0)
MPV 11.0 H fL
(7.4-10.4)
Neutrophils % 42.1 L %
(42.2-75.2)
Sodium 134 L mmol/L
(135-145)
Salicylates < 1.0 L mg/dl
(2.0-20.0)
Acetaminophen < 10 L ug/ml
(10-30)
07/14/25 22:16
07/14/25 22:16
Vital Signs
Initial and Last Documented VS:
Initial Vital Signs
Temp Pulse Resp BP Pulse Ox
98.2 F 90 14 127/89 99
07/14/25 20:24 07/14/25 20:24 07/14/25 20:24 07/14/25 20:24 07/14/25 20:24
Last Documented Vital Signs
Temp Pulse Resp BP Pulse Ox
98.2 F 72 13 100/70 88
07/14/25 20:24 07/15/25 04:00 07/15/25 04:00 07/15/25 04:00 07/15/25 00:45
<Gali Guzman MD - Last Filed: 07/15/25 05:50>
Orders/Labs/Results
Orders:
Orders
07/14/25 22:06
CT Head W/o Iv Contrast Urgent
Reason For Exam: altered
07/14/25 22:16
Aspirin level [Salicylate] Urgent
Basic Metabolic Panel Urgent
Complete Blood Count/With Diff Urgent
Tylenol [Acetaminophen] Urgent
Abnormal Lab Results
07/14/25
22:16
RBC 3.95 L 10^6/uL
(4.70-6.10)
Hgb 11.0 L g/dL
(13.0-18.0)
Hct 33.3 L %
(39.0-52.0)
MPV 11.0 H fL
(7.4-10.4)
Neutrophils % 42.1 L %
(42.2-75.2)
Sodium 134 L mmol/L
(135-145)
Salicylates < 1.0 L mg/dl
(2.0-20.0)
Acetaminophen < 10 L ug/ml
(10-30)
07/14/25 22:16
07/14/25 22:16
Vital Signs
Initial and Last Documented VS:
Initial Vital Signs
Temp Pulse Resp BP Pulse Ox
98.2 F 90 14 127/89 99
07/14/25 20:24 07/14/25 20:24 07/14/25 20:24 07/14/25 20:24 07/14/25 20:24
Last Documented Vital Signs
Temp Pulse Resp BP Pulse Ox
98.2 F 72 13 100/70 88
07/14/25 20:24 07/15/25 04:00 07/15/25 04:00 07/15/25 04:00 07/15/25 00:45
<Bj Gallego MD - Last Filed: 07/15/25 17:11>
MDM/Problems Addressed
Differential Diagnosis Includes:
Patient presents with altered mental status likely secondary to EtOH intoxication. Patient maintaining his airway. Patient with no signs of head trauma to suggest intracranial hemorrhage. No infectious symptoms and afebrile so doubt sepsis. Patient
with no signs of any medical emergencies at this time. However patient has never been here in the emergency department for intoxication. Will obtain Accu-Chek as well as blood work and a CT scan of the head given unclear a story of the altercation
with the police
<Bj Gallego MD - Last Filed: 07/15/25 17:11>
*Pulse Oximetry
SaO2: 98
Oxygen Mode of Delivery: Room air
Patient hypoxic: no
*Critical Care Note
Total Time (30-74mins, 75-104mins- exclusive of procedures): Not Applicable
<Bj Gallego MD - Last Filed: 07/15/25 17:11>
Update Note
Update Note:
Blood work reassuring. CT scan of the head negative. On reevaluation patient does awake but then goes back to sleep.
Patient signed out to oncoming attending pending reassessment for clinical sobriety.
<Gali Guzman MD - Last Filed: 07/15/25 05:50>
Update Note
Update Note:
Blood work reassuring. CT scan of the head negative. On reevaluation patient does awake but then goes back to sleep.
Patient signed out to oncoming attending pending reassessment for clinical sobriety.
5:49 AM patient awake alert lucid. He does report alcohol intake last night, declines consideration for treatment for substance use disorder. Stable for discharge
ED Attending Note
<Bj Gallego MD - Last Filed: 07/15/25 17:11>
-
Portions of this chart may have been created with voice recognition software.� Occasional wrong word or��sound alike� substitutions may have occurred due to the inherent limitations of voice recognition software.
Discharge Plan
Departure
Patient Disposition: Home (Routine Discharge)
Date of Disposition: 07/15/25
Time of Disposition: 05:50
Patient with high blood pressure during this ER visit?: Yes
Discharge Problem:
Alcohol intoxication
Instructions: Alcohol Use Disorder (DC), BLOOD PRESSURE
Prescriptions:
No Action
buprenorphine-naloxone [Suboxone] 8-2 mg Film
1 film BUCCAL TID
Referrals:
UNKNOWN,NO INTERVIEW [Family Provider]
Interventions
Interventions:
*Risk Screen - Suicide Last Done: 07/14/25 20:24
*General Assessment Last Done: 07/14/25 20:24
*Neglect/Abuse Screening Last Done: 07/14/25 20:24
*ED- Fall Risk Assessment Last Done: 07/14/25 20:24
*ED COVID-19 Vaccine History Last Done: 07/14/25 20:24
*ED Influenza Vaccine History Last Done: 07/14/25 20:24
*Nursing Disposition Last Done: 07/15/25 07:00
ED- Neurological Assessment Last Done: 07/15/25 07:00
ED-Psychological Assessment Last Done: 07/14/25 22:19
Discharge Date and Time
Discharge Date/Time: 07/15/25 07:00
Print Language: YAKUT
[2025-07-14 22:56] LABS: Acetaminophen < 10 ug/ml (10-30); Blood Urea Nitrogen 11 mg/dl (9-20); Calcium 9.1 mg/dl (8.4-10.2); Carbon Dioxide 29 mmol/L (22-30); Chloride 104 mmol/L (98-107); Estimated Creatinine Clearance > 125 ml/min; Glucose 78 mg/dl (70-99); Potassium 4.1 mmol/L (3.5-5.1); Salicylate < 1.0 mg/dl (2.0-20.0); Sodium 134 mmol/L (135-145); eGFR > 60.00
[2025-07-14 23:00] VITALS: BP 95/63
[2025-07-15] VITALS: BP 95/58
[2025-07-15 01:00] VITALS: BP 94/62
[2025-07-15 03:00] VITALS: BP 97/64
[2025-07-15 04:00] VITALS: BP 100/70
== END 2025-07-15 07:00 | disposition home or self-care (01) ==
LOC: EMR 20:20
PROVIDERS: EMERGENCY PHYSICIAN Student in an Organized Health Care Education/Training Program
DX: F10.129 Alcohol abuse with intoxication, unspecified (principal); F11.90 Opioid use, unspecified, uncomplicated; J45.909 Unspecified asthma, uncomplicated; F17.290 Nicotine dependence, other tobacco product, uncomplicated
CPT/HCPCS: 99284; 70450; 80048; 80143; 80179; 82962; 85025